=== PATIENT | female | born 1940 | race Caucasian/White ===

== ENCOUNTER 2020-04-06 15:00 | Observation (INO) ==
[2020-04-06] MEDS ORDERED: Naloxone 0.4 MG/ML INJ IVP PRN (17:07)
[2020-04-06] MEDS ORDERED: Ondansetron ODT 4 MG TAB.RAPDIS SL PRN (17:07)
[2020-04-06] MEDS ORDERED: Acetaminophen 325 MG TABLET PO PRN (17:07)
[2020-04-06] MEDS: Ringers Solution, Lactated 1,000 ML IVC SCH (18:01)
[2020-04-07 01:34] LABS: Hematocrit 39.7 % (35.3-44.9); Mean Corpuscular Volume 93.9 fL (83.0-100.0); Red Blood Count 4.23 M/mcL (3.82-4.97); Red Cell Distribution Width 13.5 % (11.5-14.5)
[2020-04-07 01:35] LABS: INR 3.5; Prothrombin Time 39.9 Seconds (9.4-12.1)
[2020-04-07 01:36] LABS: Hemoglobin 12.7 g/dL (11.5-15.4); Immature Platelets 4.7 % (1.1-6.1); Mean Platelet Volume 10.4 fL (9.4-12.4); White Blood Count 11.5 K/mcL (4.3-11.1)
[2020-04-07 01:37] LABS: Activated Partial Thrombo Time 51.1 Seconds (26.0-36.0)
[2020-04-07 01:57] LABS: BUN/Creatinine Ratio 27 (6-26); Blood Urea Nitrogen 27 mg/dL (8-23); Calcium 8.8 mg/dL (8.6-10.3); Carbon Dioxide 22 mEq/L (23-29); Chloride 108 mEq/L (98-107); Glucose 98 mg/dL (70-105); Magnesium 1.6 mg/dL (1.6-2.6); Osmolality,Calculated 293 (280-300); Phosphorous 3.4 mg/dL (2.7-4.5); Potassium 4.1 mEq/L (3.5-5.1); Sodium 139 mEq/L (136-145); eGFR For African Americans > 60 (> 60); eGFR For Non-African Americans 54 (> 60)
[2020-04-07] MEDS ORDERED: *HR* Warfarin 5 MG TABLET PO SCH (07:00)
[2020-04-07] MEDS: predniSONE 10 MG TABLET PO SCH (08:42)
[2020-04-07] MEDS: *HR* Digoxin 0.125 MG TABLET PO SCH (08:42)
[2020-04-07] MEDS: Metoprolol 100 MG TABLET PO SCH (08:42)
[2020-04-07] MEDS: Ringers Solution, Lactated 1,000 ML IVC SCH (09:37)
[2020-04-07] MEDS: *HR* Warfarin 5 MG TABLET PO SCH (10:11)
[2020-04-07] MEDS: MetroNIDAZOLE 500 MG/100 ML 500 MG/100 ML BAG IVPB SCH ×2 (15:23→23:46)
[2020-04-07] MEDS ORDERED: Warfarin perPT PO SCH (18:00)
[2020-04-08 03:08] LABS: Red Blood Count 3.93 M/mcL (3.82-4.97); Red Cell Distribution Width 13.5 % (11.5-14.5)
[2020-04-08 03:09] LABS: Hemoglobin 11.3 g/dL (11.5-15.4); Immature Platelets 5.3 % (1.1-6.1); Mean Corpuscular HGB Conc 30.5 g/dL (31.6-35.5); Mean Corpuscular Hemoglobin 28.8 pg (28.0-33.3); Mean Corpuscular Volume 94.1 fL (83.0-100.0); Mean Platelet Volume 10.6 fL (9.4-12.4); White Blood Count 6.6 K/mcL (4.3-11.1)
[2020-04-08 03:15] LABS: INR 4.1
[2020-04-08 03:22] LABS: Prothrombin Time 46.8 Seconds (9.4-12.1)
[2020-04-08 03:28] LABS: Calcium 8.6 mg/dL (8.6-10.3); Potassium 3.5 mEq/L (3.5-5.1)
[2020-04-08] MEDS: MetroNIDAZOLE 500 MG/100 ML 500 MG/100 ML BAG IVPB SCH (08:01)
[2020-04-08] MEDS: *HR* Digoxin 0.125 MG TABLET PO SCH (08:01)
[2020-04-08] MEDS: Metoprolol 100 MG TABLET PO SCH (08:01)
[2020-04-08] MEDS: predniSONE 10 MG TABLET PO SCH (08:01)
[2020-04-08 08:09] VITALS: BP 170/79
[2020-04-08] MEDS: *HR* Warfarin 5 MG TABLET PO SCH (11:12)
== END 2020-04-08 11:33 | disposition home or self-care (01) ==
LOC: 3BNU → SUATTDRO 16:35
PROVIDERS: ADMIT Internal Medicine; ATTEND Internal Medicine